=== PATIENT | male | born 1985 | race Caucasian/White ===

== ENCOUNTER 2016-12-27 16:25 | Emergency (ER) | payer BC ==
--- NOTE | 2016-12-27 17:36 | DIAGNOSTIC IMAGING REPORT ---
PROCEDURE: XR ANKLE 3 OR 4 VIEWS - RIGHT INDICATION: TRAUMA/INJURY TECHNIQUE: Four views. COMPARISON: None. FINDINGS: Osseous structures and joint spaces are normal. IMPRESSION: 1. Normal right ankle.
--- NOTE | 2016-12-27 18:08 | ED CLINICAL REPORT ---
Clinical Report - Physicians/Mid Levels [facility] [address] [place] [address] 12/27/2016 16:27 Patient: MARICRUZ DARDEN Time Seen: 1625. Arrived- By private vehicle. Historian- patient. HISTORY OF PRESENT ILLNESS Chief Complaint: Injury to the right ankle. The injury happened today. (patient reports that his cleats got stuck in the snow [place] Patient reports a hyper flexion of the right ankle.). ([facility] Patient is experiencing moderate pain. Patient denies injury to the head or neck. No other injury. (Patient works is able to ambulate on the affected lower extremity after the injury however after well, noted increasing pain and was no longer Able to do so.). REVIEW OF SYSTEMS The patient complains of pain on weight bearing. He has had swelling. No tingling, numbness, suspected foreign body or skin laceration. All systems otherwise negative, except as recorded above. PAST HISTORY See nurses notes. Tetanus immunization status is up-to-date. SOCIAL HISTORY Never smoker. No alcohol use or drug use. Residence: visiting from [place]. ADDITIONAL NOTES The nursing notes have been reviewed. PHYSICAL EXAM Vital Signs: 12/27/2016 16:35 BP: 150/76. HR: 93. RR: 20. O2 saturation: 98%. Temp: 98.4 F. Oxygen saturation normal. Head: Head atraumatic. Neck: Normal inspection. Neck supple. C-spine non-tender. CVS: Normal heart rate and rhythm. Heart sounds normal. Pulses normal. Respiratory: No respiratory distress. Breath sounds normal. Chest nontender. Abdomen: No visible injury. Soft and nontender. Bowel sounds normal. Back: Normal inspection. No tenderness. ROM normal. Extremities: (mild tenderness over the lateral malleolus. No bonyabnormalities. No crepitus. Neurovascular intact extremities. In overlying skin changes. Skin is intact. Negative Duckworth's test.). Neuro, Vascular and Tendons: Vascular status intact. Sensation intact. Motor intact. Tendon function intact. LABS, X-RAYS, AND EKG Rt Ankle X-ray: (PROCEDURE: XR ANKLE 3 OR 4 VIEWS - RIGHT INDICATION: TRAUMA/INJURY TECHNIQUE: Four views. COMPARISON: None. FINDINGS: Osseous structures and joint spaces are normal. IMPRESSION: 1. Normal right ankle. ). Views: 3 view ankle series, AP, lateral, mortise and oblique. The X-rays were independently viewed by me and interpreted contemporaneously by me. Prior films were not available for comparison. PROGRESS AND PROCEDURES Course of Care: the patient is a pleasant cooperative 31-year-old male accompanied past medical history presenting [employer] shorts and ankle pain. Patient reports hyper extension type injury with right-sided lateral ankle pain. No neurovascular Or masses time. Patient be evaluated with radiographs of the ankle. Patient is agreeable to treatment plan. Pain medication as been offered. Patient declines any offers of pain medications time. Patient's workup is noted be negative for any acute osseous after maladies. Had discussion patient in regards to the diagnostic answered here in the emergency department and possible missed fracture. Patient be treated conservatively with crutches as well as air splint. No sedating medication provided here in the emergency department. Patient states that he will be able to drive back down to [employer]. Patient states that he will try of his left sukumar Do not fill patient is being admitted to the hospital require further emergency department workup/evaluation given patient's negative studies and neurovascularintact lower 70. No other signs of injury or trauma on examination. Patient isotherwise stable. I discussed with patient his workup here in the emergency department as well as diagnosis, home care, follow-up, and return precautions. All questions have been answered. The patient expressed understanding of these instructions and was agreeable to them. Disposition: Discharged. Condition: good. CLINICAL IMPRESSION Sprain of the tibiofibular ligament of the right ankle (acute). INSTRUCTIONS Warnings: GENERAL WARNINGS: Return or contact your physician immediately if your condition worsens or changes unexpectedly, if not improving as expected, or if other problems arise. Specifically return if pain, vomiting, bleeding, breathing difficulty or fever. numbness, weakness, tingling, redness. Your Current Medications: CONTINUE TAKING THE FOLLOWING MEDICATIONS: None*. Prescription Medications: Percocet 5 mg/325 mg: take 1 tablet orally every 6 hours as needed for pain. Dispense twelve (12). No refill. Substitution is permissible. Follow-up: Return to the emergency department as needed. Follow up with your doctor in three days. Reason for referral: recheck today's concerns. Summary of care provided to patient via paper. Screening today revealed the patient's blood pressure to be in the normal range. The patient should follow up with a primary care provider for blood pressure management. Understanding of the discharge instructions verbalized by patient. (Electronically signed by Malachi Arndt Dr. 01/02/2017 23:34)
--- NOTE | 2016-12-27 18:08 | ED ORDER SUMMARY ---
..... Patient: MARICRUZ DARDEN OrderSheet [facility] VisitID: [id number] [address] [place] [address] 31y, M Registration Date/Time: 12/27/2016 ORDER SHEET Weight: 68.0 kg (stated) Allergies: No Known Drug Allergy GENERAL ORDERS: Ankle 3 or 4V Right Urgent (16:56 12/27/2016 Sol Deleon) (Ack 17:13 LNations ER Tech1) (17:33 LNations ER Tech1) Ice (16:56 12/27/2016 Sol Deleon) (16:57 LWhalen R.N.) Crutches (16:56 12/27/2016 Sol Deleon) (Ack 17:34 LWhalen R.N.) (17:49 POLOoerner) Splint (LE) (Right) (Air Splint) (18:06 12/27/2016 Sol Deleon) MEDICATION ORDERS: IV FLUIDS: ORDER SHEET NOTES: [Electronically signed by Lorna Vera R.N. (19:27 12/27/2016)] [Electronically signed by Malachi Arndt Dr. (23:34 01/02/2017)] [Electronically locked/signed by Lorna Vera R.N. (:12/27/2016)]
--- NOTE | 2016-12-27 18:08 | ED CLINICAL REPORT ---
Clinical Report - Physicians/Mid Levels [facility] [address] [place] [address] 12/27/2016 16:27 Patient: MARICRUZ DARDEN Time Seen: 1625. Arrived- By private vehicle. Historian- patient. HISTORY OF PRESENT ILLNESS Chief Complaint: Injury to the right ankle. The injury happened today. (patient reports that his cleats got stuck in the snow [place]. Patient reports a hyper flexion of the right ankle.). ([facility]). Patient is experiencing moderate pain. Patient denies injury to the head or neck. No other injury. (Patient works is able to ambulate on the affected lower extremity after the injury however after well, noted increasing pain and was no longer Able to do so.). REVIEW OF SYSTEMS The patient complains of pain on weight bearing. He has had swelling. No tingling, numbness, suspected foreign body or skin laceration. All systems otherwise negative, except as recorded above. PAST HISTORY See nurses notes. Tetanus immunization status is up-to-date. SOCIAL HISTORY Never smoker. No alcohol use or drug use. Residence: visiting from [place]. ADDITIONAL NOTES The nursing notes have been reviewed. PHYSICAL EXAM Vital Signs: 12/27/2016 16:35 BP: 150/76. HR: 93. RR: 20. O2 saturation: 98%. Temp: 98.4 F. Oxygen saturation normal. Head: Head atraumatic. Neck: Normal inspection. Neck supple. C-spine non-tender. CVS: Normal heart rate and rhythm. Heart sounds normal. Pulses normal. Respiratory: No respiratory distress. Breath sounds normal. Chest nontender. Abdomen: No visible injury. Soft and nontender. Bowel sounds normal. Back: Normal inspection. No tenderness. ROM normal. Extremities: (mild tenderness over the lateral malleolus. No bonyabnormalities. No crepitus. Neurovascular intact extremities. In overlying skin changes. Skin is intact. Negative Duckworth's test.). Neuro, Vascular and Tendons: Vascular status intact. Sensation intact. Motor intact. Tendon function intact. LABS, X-RAYS, AND EKG Rt Ankle X-ray: (PROCEDURE: XR ANKLE 3 OR 4 VIEWS - RIGHT INDICATION: TRAUMA/INJURY TECHNIQUE: Four views. COMPARISON: None. FINDINGS: Osseous structures and joint spaces are normal. IMPRESSION: 1. Normal right ankle. ). Views: 3 view ankle series, AP, lateral, mortise and oblique. The X-rays were independently viewed by me and interpreted contemporaneously by me. Prior films were not available for comparison. PROGRESS AND PROCEDURES Course of Care: the patient is a pleasant cooperative 31-year-old male accompanied past medical history presenting [employer] shorts and ankle pain. Patient reports hyper extension type injury with right-sided lateral ankle pain. No neurovascular Or masses time. Patient be evaluated with radiographs of the ankle. Patient is agreeable to treatment plan. Pain medication as been offered. Patient declines any offers of pain medications time. Patient's workup is noted be negative for any acute osseous after maladies. Had discussion patient in regards to the diagnostic answered here in the emergency department and possible missed fracture. Patient be treated conservatively with crutches as well as air splint. No sedating medication provided here in the emergency department. Patient states that he will be able to drive back down to [employer]. Patient states that he will try of his left sukumar Do not fill patient is being admitted to the hospital require further emergency department workup/evaluation given patient's negative studies and neurovascularintact lower 70. No other signs of injury or trauma on examination. Patient isotherwise stable. I discussed with patient his workup here in the emergency department as well as diagnosis, home care, follow-up, and return precautions. All questions have been answered. The patient expressed understanding of these instructions and was agreeable to them. Disposition: Discharged. Condition: good. CLINICAL IMPRESSION Sprain of the tibiofibular ligament of the right ankle (acute). INSTRUCTIONS Warnings: GENERAL WARNINGS: Return or contact your physician immediately if your condition worsens or changes unexpectedly, if not improving as expected, or if other problems arise. Specifically return if pain, vomiting, bleeding, breathing difficulty or fever. numbness, weakness, tingling, redness. Your Current Medications: CONTINUE TAKING THE FOLLOWING MEDICATIONS: None*. Prescription Medications: Percocet 5 mg/325 mg: take 1 tablet orally every 6 hours as needed for pain. Dispense twelve (12). No refill. Substitution is permissible. Follow-up: Return to the emergency department as needed. Follow up with your doctor in three days. Reason for referral: recheck today's concerns. Summary of care provided to patient via paper. Screening today revealed the patient's blood pressure to be in the normal range. The patient should follow up with a primary care provider for blood pressure management. Understanding of the discharge instructions verbalized by patient. (Electronically signed by Malachi Arndt Dr. 01/02/2017 23:34)
--- NOTE | 2016-12-27 18:08 | ED NURSING NOTES ---
Clinical Report - Nurses [facility] [address] [place] [place] [address] 12/27/2016 16:27 Patient: MARICRUZ DARDEN TRIAGE Triage time 16:35 Dec 27 2016. Acuity: LEVEL 3. Chief Complaint: INJURY TO RIGHT ANKLE. ARCHANA COMA SCORE: Archana Coma Scale: 15- eyes open spontaneously (4); best verbal response- oriented x 4 (5); best motor response- obeys commands (6). --16:40 Lorna Vera R.N. 16:35 12/27/16. BP: 150/76. HR: 93. RR: 20. O2 saturation: 98%. Temp: 98.4 F. Pain level now 6/10. --16:40 Lorna Vera R.N. Weight: 68 kg stated. Height/Length: 71 inches Per Patient. BMI: 20.9. --16:38 Lorna Vera R.N. Medications None. --16:37 Lorna Vera R.N. Allergies No Known Drug Allergy. --16:37 Lorna Vera R.N. History Arrived by private vehicle. Historian: patient. This occurred today. Mechanism of injury: fell. ( Was climbing and propelling down with mountaineering boots with crampons on them and he fell and the point caught and he landed on his right ankle and had to be carried out by a couple.). He has had trouble walking. No numbness, tingling, weakness, neck pain or back pain. 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 PAST MEDICAL HX: Tetanus status: up-to-date. Immunizations: up-to-date. SOCIAL HX: Never smoker. No alcohol use or drug use. SELF HARM ASSESSMENT: A self harm assessment was performed. The patient answered "no" to the question "Have you recently felt down, depressed, or hopeless?" and "Do you have thoughts of harming or killing yourself?". FALL RISK ASSESSMENT: Fall risk assessment completed. No fall risk identified. NUTRITIONAL RISK ASSESSMENT: The nutritional risk assessment revealed no deficiencies. FUNCTIONAL ASSESSMENT: Functional assessment: no impairments noted. LEARNING NEEDS ASSESSMENT: The learning needs assessment revealed no barriers. ABUSE ASSESSMENT: Abuse assessment: (yes) The patient was asked "Do you feel safe in your home?". SKIN INTEGRITY ASSESSMENT: Skin integrity risk assessment completed. No skin integrity risk identified. --16:40 Lorna Vera R.N. PROBLEMS: no known problems. ADDITIONAL SURGERIES: Hurnia repair . --16:38 Lorna Vera R.N. Interventions ID band on patient. --16:40 Lorna Vera R.N. PHYSICAL ASSESSMENT To room via wheelchair. GENERAL / NEURO / PSYCH: Oriented X 4. Alert. Appears in no acute distress. EXTREMITIES: Capillary refill is less than 2 seconds in the extremities. Extremity pulses are within normal limits. Extremities exhibit normal ROM. He was unable to bear weight. Neuro-vascular status intact to the extremity. Right ankle: tenderness. SKIN: Skin intact. Skin is warm and dry. --16:40 Lorna Vera R.N. NURSING PROGRESS NOTES The initial plan of care for this patient includes an assessment with efforts to address patient positioning and appropriate ambient lighting; impairment of the musculoskeletal system. Cold pack applied. Reassurance given. Call light placed in reach. Bed placed in lowest position. Brakes of bed on. --16:41 Lorna Vera R.N. Air splint applied. Distal pulses intact, sensation intact and motor within normal limits. Patient fit with crutches. --18:23 Aisha Denis ER Tech1. Locked/Released at 12/27/2016 19:27 by Lorna Vera R.N.
--- NOTE | 2016-12-27 18:08 | ED NURSING NOTES ---
Clinical Report - Nurses [facility] [address] [place] [address] 12/27/2016 16:27 Patient: MARICRUZ DARDEN TRIAGE Triage time 16:35 Dec 27 2016. Acuity: LEVEL 3. Chief Complaint: INJURY TO RIGHT ANKLE. ARCHANA COMA SCORE: Archana Coma Scale: 15- eyes open spontaneously (4); best verbal response- oriented x 4 (5); best motor response- obeys commands (6). --16:40 Lorna Vera R.N. 16:35 12/27/16. BP: 150/76. HR: 93. RR: 20. O2 saturation: 98%. Temp: 98.4 F. Pain level now 6/10. --16:40 Lorna Vera R.N. Weight: 68 kg stated. Height/Length: 71 inches Per Patient. BMI: 20.9. --16:38 Lorna Vera R.N. Medications None. --16:37 Lorna Vera R.N. Allergies No Known Drug Allergy. --16:37 Lorna Vera R.N. History Arrived by private vehicle. Historian: patient. This occurred today. Mechanism of injury: fell. ( Was climbing and propelling down with mountaineering boots with crampons on them and he fell and the point caught and he landed on his right ankle and had to be carried out by a couple.). He has had trouble walking. No numbness, tingling, weakness, neck pain or back pain. 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 PAST MEDICAL HX: Tetanus status: up-to-date. Immunizations: up-to-date. SOCIAL HX: Never smoker. No alcohol use or drug use. SELF HARM ASSESSMENT: A self harm assessment was performed. The patient answered "no" to the question "Have you recently felt down, depressed, or hopeless?" and "Do you have thoughts of harming or killing yourself?". FALL RISK ASSESSMENT: Fall risk assessment completed. No fall risk identified. NUTRITIONAL RISK ASSESSMENT: The nutritional risk assessment revealed no deficiencies. FUNCTIONAL ASSESSMENT: Functional assessment: no impairments noted. LEARNING NEEDS ASSESSMENT: The learning needs assessment revealed no barriers. ABUSE ASSESSMENT: Abuse assessment: (yes) The patient was asked "Do you feel safe in your home?". SKIN INTEGRITY ASSESSMENT: Skin integrity risk assessment completed. No skin integrity risk identified. --16:40 Lorna Vera R.N. PROBLEMS: no known problems. ADDITIONAL SURGERIES: Hurnia repair . --16:38 Lorna Vera R.N. Interventions ID band on patient. --16:40 Lorna Vera R.N. PHYSICAL ASSESSMENT To room via wheelchair. GENERAL / NEURO / PSYCH: Oriented X 4. Alert. Appears in no acute distress. EXTREMITIES: Capillary refill is less than 2 seconds in the extremities. Extremity pulses are within normal limits. Extremities exhibit normal ROM. He was unable to bear weight. Neuro-vascular status intact to the extremity. Right ankle: tenderness. SKIN: Skin intact. Skin is warm and dry. --16:40 Lorna Vera R.N. NURSING PROGRESS NOTES The initial plan of care for this patient includes an assessment with efforts to address patient positioning and appropriate ambient lighting; impairment of the musculoskeletal system. Cold pack applied. Reassurance given. Call light placed in reach. Bed placed in lowest position. Brakes of bed on. --16:41 Lorna Vera R.N. Air splint applied. Distal pulses intact, sensation intact and motor within normal limits. Patient fit with crutches. --18:23 Aisha Denis ER Tech1. Locked/Released at 12/27/2016 19:27 by Lorna Vera R.N.
--- NOTE | 2016-12-27 18:08 | ED ORDER SUMMARY ---
..... Patient: MARICRUZ DARDEN OrderSheet [facility] VisitID: [id number] [address] [place] [address] 31y, M Registration Date/Time: 12/27/2016 ORDER SHEET Weight: 68.0 kg (stated) Allergies: No Known Drug Allergy GENERAL ORDERS: Ankle 3 or 4V Right Urgent (16:56 12/27/2016 Sol Deleon) (Ack 17:13 LNations ER Tech1) (17:33 LNations ER Tech1) Ice (16:56 12/27/2016 Sol Deleon) (16:57 LWhalen R.N.) Crutches (16:56 12/27/2016 Sol Deleon) (Ack 17:34 LWhalen R.N.) (17:49 POLOoerner) Splint (LE) (Right) (Air Splint) (18:06 12/27/2016 Sol Deleon) MEDICATION ORDERS: IV FLUIDS: ORDER SHEET NOTES: [Electronically signed by Lorna Vera R.N. (19:27 12/27/2016)] [Electronically signed by Malachi Arndt Dr. (23:34 01/02/2017)] [Electronically locked/signed by Lorna Vera R.N. (:12/27/2016)]
--- NOTE | 2017-01-02 23:34 | ED MAR SUMMARY ---
..... Medication Administration Record [facility] [address], [place] [id number] Patient: ZABRINAEDDIE MARICRUZ Allan Visit ID: [id number] 31y, M Weight: 68.0 kg Height/Length: 71 in BMI: 20.9 ALLERGIES: No Known Drug Allergy
--- NOTE | 2017-01-02 23:34 | ED MED RECONCILIATION SUMMARY ---
Patient: MARICRUZ DARDEN Medication Reconciliation Report [facility] VisitID: [id number] [address] [place] [address] 31y, M Registration Date/Time: 12/27/2016 Weight: 68.0 kg Height/Length: 71 in. BMI: 20.9 ALLERGIES: No Known Drug Allergy The patient's Home Medications are listed below: NONE. The source(s) of the original Home Medication information: Not obtained. The following Medications were given to the patient in the Emergency Department: None. The following Medications were prescribed to the patient: Percocet 5 mg/325 mg: take 1 tablet orally every 6 hours as needed for pain. Dispense twelve (12). No refill. Substitution is permissible. -- Malachi Arndt Dr.
--- NOTE | 2017-01-02 23:34 | ED MED RECONCILIATION SUMMARY ---
Patient: MARICRUZ DARDEN Medication Reconciliation Report [facility] VisitID: [id number] [address] [place] [address] 31y, M Registration Date/Time: 12/27/2016 Weight: 68.0 kg Height/Length: 71 in. BMI: 20.9 ALLERGIES: No Known Drug Allergy The patient's Home Medications are listed below: NONE. The source(s) of the original Home Medication information: Not obtained. The following Medications were given to the patient in the Emergency Department: None. The following Medications were prescribed to the patient: Percocet 5 mg/325 mg: take 1 tablet orally every 6 hours as needed for pain. Dispense twelve (12). No refill. Substitution is permissible. -- Malachi Arndt Dr.
--- NOTE | 2017-01-02 23:34 | ED DISCHARGE INSTRUCTIONS ---
Patient: MARICRUZ DARDEN General Instructions [facility] VisitID: [id number] [address] [place] [address] 31y, M Registration Date/Time: 12/27/2016 Sprain of the tibiofibular ligament of the right ankle (acute). INSTRUCTIONS Warnings: GENERAL WARNINGS: Return or contact your physician immediately if your condition worsens or changes unexpectedly, if not improving as expected, or if other problems arise. Specifically return if pain, vomiting, bleeding, breathing difficulty or fever. numbness, weakness, tingling, redness. Your Current Medications: CONTINUE TAKING THE FOLLOWING MEDICATIONS: None*. Prescription Medications: Percocet 5 mg/325 mg: take 1 tablet orally every 6 hours as needed for pain. Dispense twelve (12). No refill. Substitution is permissible. Follow-up: Return to the emergency department as needed. Follow up with your doctor in three days. Reason for referral: recheck today's concerns. Summary of care provided to patient via paper. Screening today revealed the patient's blood pressure to be in the normal range. The patient should follow up with a primary care provider for blood pressure management. Understanding of the discharge instructions verbalized by patient. ADDITIONAL INFORMATION Sprain, Ankle,With X-Ray A sprain is an injury to the ligaments or capsule that holds a joint together. There are no broken bones. Most sprains take from four to six weeks to heal. If the ligament is completely torn (severe sprain), it can take several months to recover. Mild to moderate sprains may be treated with an elastic wrap or an in-shoe splint to provide support and prevent re-injury. A mild sprain may not require any additional support. A severe sprain may require surgery to repair. Home care The following guidelines will help you care for your injury at home: Stay off the injured leg as much as possible until you can walk on it without pain. If you have a lot of pain with walking, crutches or a walker may be prescribed. (These can be rented or purchased at many pharmacies and surgical or orthopedic supply stores). Follow your doctor's advice regarding when to begin bearing weight on that leg. Keep your leg elevated to reduce pain and swelling. When sleeping, place a pillow under the injured leg. When sitting, support the injured leg so it is level with your waist. This is very important during the first 48 hours. Apply an ice pack (ice cubes in a plastic bag, wrapped in a towel) over the injured area for 20 minutes every 12 hours the first day. You can place the ice pack directly over the splint/cast. If you were given a boot, open it to apply the ice pack. Continue with ice packs 34 times a day for the next two days, then as needed for the relief of pain and swelling. You may use acetaminophen or ibuprofen to control pain, unless another pain medicine was prescribed. If you have chronic liver or kidney disease or ever had a stomach ulcer or GI bleeding, talk with your doctor before using these medicines. You may return to sports after healing, when you can run without pain. A sprained ankle is at risk for re-injury during the first six weeks. During that time, protect your ankle with an in-shoe splint that prevents tilting of your ankle from side to side. This is very important if you do active work or play sports during that time. Follow-up care Any X-rays you had today dont show any broken bones, breaks, or fractures. Sometimes fractures dont show up on the first X-ray. Bruises and sprains can sometimes hurt as much as a fracture. These injuries can take time to heal completely. If your symptoms dont improve or they get worse, talk with your doctor. You may need a repeat X-ray. When to seek medical care Get prompt medical attention if any of the following occur: The plaster cast or splint gets wet or soft The fiberglass cast or splint gets wet and does not dry for 24 hours Pain or swelling increases, or redness appears Toes become cold, blue, numb or tingly Re-injure your ankle Oxycodone Hydrochloride, Acetaminophen Oral tablet What is this medicine? ACETAMINOPHEN; OXYCODONE (a set a JEREMIAS rasheed fen; ox i KOE done) is a pain reliever. It is used to treat mild to moderate pain. How should I use this medicine? Take this medicine by mouth with a full glass of water. Follow the directions on the prescription label. Take your medicine at regular intervals. Do not take your medicine more often than directed. Talk to your four corner stayer machine operator regarding the use of this medicine in children. Special care may be needed. Patients over 65 years old may have a stronger reaction and need a smaller dose. What side effects may I notice from receiving this medicine? Side effects that you should report to your doctor or health care director rn as soon as possible: allergic reactions like skin rash, itching or hives, swelling of the face, lips, or tongue breathing difficulties, wheezing confusion light headedness or fainting spells severe stomach pain yellowing of the skin or the whites of the eyes Side effects that usually do not require medical attention (report to your doctor or health care director rn if they continue or are bothersome): dizziness drowsiness nausea vomiting What may interact with this medicine? alcohol antihistamines barbiturates like amobarbital, butalbital, butabarbital, methohexital, pentobarbital, phenobarbital, thiopental, and secobarbital benztropine drugs for bladder problems like solifenacin, trospium, oxybutynin, tolterodine, hyoscyamine, and methscopolamine drugs for breathing problems like ipratropium and tiotropium drugs for certain stomach or intestine problems like propantheline, homatropine methylbromide, glycopyrrolate, atropine, belladonna, and dicyclomine general anesthetics like etomidate, ketamine, nitrous oxide, propofol, desflurane, enflurane, halothane, isoflurane, and sevoflurane medicines for depression, anxiety, or psychotic disturbances medicines for sleep muscle relaxants naltrexone narcotic medicines (opiates) for pain phenothiazines like perphenazine, thioridazine, chlorpromazine, mesoridazine, fluphenazine, prochlorperazine, promazine, and trifluoperazine scopolamine tramadol trihexyphenidyl What if I miss a dose? If you miss a dose, take it as soon as you can. If it is almost time for your next dose, take only that dose. Do not take double or extra doses. Where should I keep my medicine? Keep out of the reach of children. This medicine can be abused. Keep your medicine in a safe place to protect it from theft. Do not share this medicine with anyone. Selling or giving away this medicine is dangerous and against the law. Store at room temperature between 20 and 25 degrees C (68 and 77 degrees F). Keep container tightly closed. Protect from light. This medicine may cause accidental overdose and if it is taken by other adults, children, or pets. Flush any unused medicine down the toilet to reduce the chance of harm. Do not use the medicine after the expiration date. What should I tell my health care provider before I take this medicine? They need to know if you have any of these conditions: brain tumor Crohn's disease, inflammatory bowel disease, or ulcerative colitis drink more than 3 alcohol containing drinks per day drug abuse or addiction head injury heart or circulation problems kidney disease or problems going to the bathroom liver disease lung disease, asthma, or breathing problems an unusual or allergic reaction to acetaminophen, oxycodone, other opioid analgesics, other medicines, foods, dyes, or preservatives or trying to get breast-feeding What should I watch for while using this medicine? Tell your doctor or health care director rn if your pain does not go away, if it gets worse, or if you have new or a different type of pain. You may develop tolerance to the medicine. Tolerance means that you will need a higher dose of the medication for pain relief. Tolerance is normal and is expected if you take this medicine for a long time. Do not suddenly stop taking your medicine because you may develop a severe reaction. Your body becomes used to the medicine. This does NOT mean you are addicted. Addiction is a behavior related to getting and using a drug for a non-medical reason. If you have pain, you have a medical reason to take pain medicine. Your doctor will tell you how much medicine to take. If your doctor wants you to stop the medicine, the dose will be slowly lowered over time to avoid any side effects. You may get drowsy or dizzy. Do not drive, use machinery, or do anything that needs mental alertness until you know how this medicine affects you. Do not stand or sit up quickly, especially if you are an older patient. This reduces the risk of dizzy or fainting spells. Alcohol may interfere with the effect of this medicine. Avoid alcoholic drinks. There are different types of narcotic medicines (opiates) for pain. If you take more than one type at the same time, you may have more side effects. Give your health care provider a list of all medicines you use. Your doctor will tell you how much medicine to take. Do not take more medicine than directed. Call emergency for help if you have problems breathing. The medicine will cause constipation. Try to have a bowel movement at least every 2 to 3 days. If you do not have a bowel movement for 3 days, call your doctor or health care director rn. Do not take Tylenol (acetaminophen) or medicines that have acetaminophen with this medicine. Too much acetaminophen can be very dangerous. Many nonprescription medicines contain acetaminophen. Always read the labels carefully to avoid taking more acetaminophen. You have been given the following additional information: Sprain, Ankle, With X-Ray Oxycodone Hydrochloride, Acetaminophen Oral tablet (Electronically signed by Malachi Arndt Dr. 01/02/2017 23:34)
--- NOTE | 2017-01-02 23:34 | ED MAR SUMMARY ---
..... Medication Administration Record [facility] [address] [place], [place] [id number] Patient: ZABRINAEDDIE MARICRUZ Allan Visit ID: [id number] 31y, M Weight: 68.0 kg Height/Length: 71 in BMI: 20.9 ALLERGIES: No Known Drug Allergy
== END 2016-12-27 18:15 | disposition home or self-care (01) ==
LOC: ED SRH 16:25
DX: S93.431A Sprain of tibiofibular ligament of right ankle, initial encounter (principal); W23.1XXA Caught, crushed, jammed, or pinched between stationary objects, initial encounter; Y93.89 Activity, other specified; Y92.828 Other wilderness area as the place of occurrence of the external cause